=== PATIENT | female | born 1985 | race African-American/Black ===

== ENCOUNTER 2018-07-18 10:09 | Emergency (ER) | payer SELFPAY ==
[2018-07-18 11:19] LABS: Urine Blood NEGATIVE (NEG); Urine Glucose NEGATIVE (NEG); Urine Protein 1+ (NEG); Urine pH 7.5 (5.0-7.0)
[2018-07-18] MEDS ORDERED: IBUPROFEN 400 MG TAB ONE (11:28)
[2018-07-18] MEDS ORDERED: IBUPROFEN 200 MG TAB PO ONE (11:28)
[2018-07-18 11:32] LABS: Urine Amorphous Sediment 2+ /HPF (NONE SEEN); Urine Bacteria <20 /HPF (<20); Urine Culture Reflex Order NOT NEEDED; Urine Mucus 2+ /HPF (NONE SEEN); Urine RBC <5 /HPF (NONE SEEN)
[2018-07-18 12:16] LABS: Absolute Lymphocytes (CBC) 0.7 K/uL (0.7-4.9); Absolute Monocytes 1.2 K/uL (0.1-1.3); Absolute Neutrophil 13.3 K/uL (1.8-8.0); Basophils % 0.4 % (0-1.3); Eosinophils % 0.1 % (0-4.4); Lymphocytes % 4.7 % (15.3-44.8); MPV 10.7 fL (7.6-11.3); Monocytes % 7.6 % (3.3-12.3); RBC Red Blood Cell Count 4.15 M/uL (3.86-4.86)
[2018-07-18 12:29] LABS: Potassium 3.5 mmol/L (3.5-5.1)
--- NOTE | 2018-07-18 13:11 | EDPHYS ---
Physician Documentation [facility] Name: Cristin Cadena Age: 33 yrs Sex: Female : 1985 Arrival Date: 07/18/2018 Time: 10:14 Bed 12 Private MD: None, None ED Physician Jayson Ortiz HPI: 07/18 11:06 This 33 yrs old Black Female presents to ER via Ambulatory with complaints of Flu kb Symptoms. 11:06 The patient reports fever, that was measured at 103 degrees Fahrenheit, with an kb emergency department temperature of 99.1 degrees Fahrenheit. Onset: The symptoms/episode began/occurred 3 day(s) ago. Modifying factors: there are no obvious modifying factors. Associated signs and symptoms: Pertinent positives: abdominal pain, backache, chills, sore throat. Severity of symptoms: At their worst the symptoms were moderate in the emergency department the symptoms are unchanged. The patient has not experienced similar symptoms in the past. The patient has not recently seen a physician. 11:07 Pt reports fever, chills, bilateral flank pain, suprapubic pain, sore throat for 3 kb days. . 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 - Social history:: Smoking status: Patient/guardian denies using tobacco. - Ebola Screening: : No symptoms or risks identified at this time. ROS: 11:03 Neck: Negative for injury, pain, and swelling, Cardiovascular: Negative for chest pain, kb palpitations, and edema, MS/Extremity: Negative for injury and deformity, Skin: Negative for injury, rash, and discoloration, Neuro: Negative for headache, weakness, numbness, tingling, and seizure. 11:03 Constitutional: Positive for body aches, chills, fatigue, fever, malaise, Negative for poor PO intake, weight loss. 11:03 ENT: Positive for sinus pain. 11:03 Abdomen/GI: Positive for abdominal pain, Negative for nausea, vomiting, and diarrhea, constipation, abdominal cramps, abdominal distension, anorexia. 11:03 : Positive for flank pain. Exam: 11:05 Constitutional: This is a well developed, well nourished patient who is awake, alert, kb and in no acute distress. Head/Face: Normocephalic, atraumatic. ENT: Nares patent. No nasal discharge, no septal abnormalities noted. Tympanic membranes are normal and external auditory canals are clear. Oropharynx with no redness, swelling, or masses, exudates, or evidence of obstruction, uvula midline. Mucous membranes moist. Neck: Trachea midline, no thyromegaly or masses palpated, and no cervical lymphadenopathy. Supple, full range of motion without nuchal rigidity, or vertebral point tenderness. No Meningismus. Chest/axilla: Normal chest wall appearance and motion. Nontender with no deformity. No lesions are appreciated. Cardiovascular: Regular rate and rhythm with a normal S1 and S2. No gallops, murmurs, or rubs. Normal PMI, no JVD. No pulse deficits. Respiratory: Lungs have equal breath sounds bilaterally, clear to auscultation and percussion. No rales, rhonchi or wheezes noted. No increased work of breathing, no retractions or nasal flaring. Abdomen/GI: Soft, non-tender, with normal bowel sounds. No distension or tympany. No guarding or rebound. No evidence of tenderness throughout. Skin: Warm, dry with normal turgor. Normal color with no rashes, no lesions, and no evidence of cellulitis. MS/ Extremity: Pulses equal, no cyanosis. Neurovascular intact. Full, normal range of motion. Neuro: Awake and alert, GCS 15, oriented to person, place, time, and situation. Cranial nerves II-XII grossly intact. Motor strength 5/5 in all extremities. Sensory grossly intact. Cerebellar exam normal. Normal gait. 11:05 Back: CVA tenderness, that is mild, is noted bilaterally. Vital Signs: 10:26 BP 140 / 80; Pulse 94; Resp 18; Temp 99.1(O); Pulse Ox 100% on R/A; Weight 65.77 kg; ph Height 5 ft. 9 in. (175.26 cm); Pain 8/10; 11:21 Pulse 112; Resp 20; Temp 101.8(O); Pulse Ox 100% on R/A; ph 13:26 BP 127 / 72; Pulse 92; Resp 18; Temp 98.6; Pulse Ox 99% on R/A; ph 10:26 Body Mass Index 21.41 (65.77 kg, 175.26 cm) ph MDM: 10:27 Patient medically screened. kb 11:05 Data reviewed: vital signs, nurses notes. Data interpreted: Pulse oximetry: on room air kb is 100 %. Interpretation: normal. Counseling: I had a detailed discussion with the patient and/or guardian regarding: the historical points, exam findings, and any diagnostic results supporting the discharge/admit diagnosis, lab results, the need for outpatient follow up, a family practitioner, to return to the emergency department if symptoms worsen or persist or if there are any questions or concerns that arise at home. 13:09 ED course: Pt does not want CT at this time. Would like to go home now. kb 07/18 10:19 Order name: Flu; Complete Time: 10:56 ph 07/18 10:19 Order name: Strep; Complete Time: 10:49 ph 07/18 10:50 Order name: Throat Culture EDHI 07/18 11:10 Order name: Urine Microscopic Only ph 07/18 11:12 Order name: Urine Dipstick--Ancillary (enter results) eb 07/18 11:12 Order name: Urine --Ancillary (enter results) eb 07/18 11:22 Order name: Urine --Ancillary; Complete Time: 11:27 EDHI 07/18 11:22 Order name: Urine Dipstick-Ancillary; Complete Time: 11:27 EDHI 07/18 11:32 Order name: Urine Microscopic Only; Complete Time: 11:34 EDHI 07/18 11:34 Order name: CBC with Diff; Complete Time: 13:07 kb 07/18 11:34 Order name: Basic Metabolic Panel; Complete Time: 12:30 kb 07/18 11:34 Order name: [place] Screen Profile; Complete Time: 12:49 kb 07/18 10:20 Order name: Urine Dipstick-Ancillary (obtain specimen); Complete Time: 11:11 ph Administered Medications: 11:19 Drug: Ibuprofen 600 mg Route: PO; ss 12:30 Follow up: Response: No adverse reaction; Temperature is decreased ph Disposition: 16:11 Co-signature as Attending Physician, Jayson Ortiz MD I agree with the assessment and kdr plan of care. Disposition: 07/18/18 13:10 Discharged to Home. Impression: Fever, unspecified. - Condition is Stable. - Discharge Instructions: Viral Respiratory Infection, [id number], Fever, Adult, [id number]. - Medication Reconciliation Form, Thank You Letter, Antibiotic Education, Prescription Opioid Use form. - Follow up: Emergency Department; When: As needed; Reason: Worsening of condition. Follow up: Private Physician; When: 2 - 3 days; Reason: Recheck today's complaints, Continuance of care, Re-evaluation by your physician. Signatures: Dispatcher [employer] [facility] Macrina Diaz, ELECTRIC LINEMAN-C ELECTRIC LINEMAN-Ckb Jayson Ortiz MD MD [facility] Graciela Flores, NICOLE RN ss Dai Gutierrez RN RN ph Corrections: (The following items were deleted from the chart) 13:25 13:08 Abdomen Pelvis W Con+CT.RAD.BRZ ordered. [facility] 13:27 13:10 07/18/2018 13:10 Discharged to Home. Impression: Fever, unspecified. Condition is ph Stable. Forms are Medication Reconciliation Form, Thank You Letter, Antibiotic Education, Prescription Opioid Use. Follow up: Emergency Department; When: As needed; Reason: Worsening of condition. Follow up: Private Physician; When: 2 - 3 days; Reason: Recheck today's complaints, Continuance of care, Re-evaluation by your physician. kb
--- NOTE | 2018-07-18 13:11 | ER ---
Nurse's Notes [facility] Name: Cristin Cadena Age: 33 yrs Sex: Female : 1985 Arrival Date: 07/18/2018 Time: 10:14 Bed 12 Private MD: None, None Diagnosis: Fever, unspecified Presentation: 07/18 10:23 Presenting complaint: Patient states: Sore/swollen throat, fever, chills, nausea, low ph back pain and suprapubic pain, also reports urinary frequency but denies burning, took 1000 mg Tylenol at 0500, TMAX 103. Transition of care: patient was not received from another setting of care. Onset of symptoms was July 18, 2018. Risk Assessment: Do you want to hurt yourself or someone else? Patient reports no desire to harm self or others. Initial Sepsis Screen: Does the patient meet any 2 criteria? No. Patient's initial sepsis screen is negative. Does the patient have a suspected source of infection? Yes: Dysuria/Frequency/Urgency/UTI. Care prior to arrival: Medication(s) given: Tylenol, 1000 mg. 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 - Social history:: Smoking status: Patient/guardian denies using tobacco. - Ebola Screening: : No symptoms or risks identified at this time. Screenin:11 Abuse screen: Denies threats or abuse. Denies injuries from another. Nutritional ph screening: No deficits noted. Tuberculosis screening: No symptoms or risk factors identified. Fall Risk None identified. Assessment: 10:32 General: Appears in no apparent distress. uncomfortable, slender, well groomed, ph Behavior is calm, cooperative, appropriate for age, Reports chills for fever for 1-2 days. Pain: Complains of pain in suprapubic area, low back, and throat. 10:33 Neuro: Level of Consciousness is awake, alert, obeys commands, Oriented to person, ph place, time, situation. Cardiovascular: Capillary refill < 3 seconds in bilateral fingers Patient's skin is warm and dry. Respiratory: Airway is patent Respiratory effort is even, unlabored, Respiratory pattern is regular, symmetrical, Denies cough, shortness of breath. GI: Abdomen is flat, non-distended, Reports lower abdominal pain, nausea. : Reports pain in suprapubic area in lower back urinary frequency. EENT: Throat is reddened has enlarged tonsils bilaterally Reports nasal congestion pain when swallowing. Derm: Skin is intact, is healthy with good turgor, Skin is pink, warm \T\ dry. 11:20 Reassessment: Patient appears in no apparent distress at this time. Patient and/or ph family updated on plan of care and expected duration. Pain level reassessed. Patient is alert, oriented x 3, equal unlabored respirations, skin warm/dry/pink. Pt resting quietly, fever up to 101.8, ERP notified, see MAR, awaiting lab results. 12:30 Reassessment: Patient appears in no apparent distress at this time. Patient and/or ph family updated on plan of care and expected duration. Pain level reassessed. Patient is alert, oriented x 3, equal unlabored respirations, skin warm/dry/pink. Pt resting quietly, awaiting lab results. 13:17 Reassessment: Patient appears in no apparent distress at this time. Patient and/or ph family updated on plan of care and expected duration. Pain level reassessed. Patient is alert, oriented x 3, equal unlabored respirations, skin warm/dry/pink. Pt d/c home w/ SO. General:. Vital Signs: 10:26 BP 140 / 80; Pulse 94; Resp 18; Temp 99.1(O); Pulse Ox 100% on R/A; Weight 65.77 kg; ph Height 5 ft. 9 in. (175.26 cm); Pain 8/10; 11:21 Pulse 112; Resp 20; Temp 101.8(O); Pulse Ox 100% on R/A; ph 13:26 BP 127 / 72; Pulse 92; Resp 18; Temp 98.6; Pulse Ox 99% on R/A; ph 10:26 Body Mass Index 21.41 (65.77 kg, 175.26 cm) ph ED Course: 10:14 Patient arrived in ED. sb2 10:14 None, None is Private Physician. sb2 10:20 Macrina Diaz [facility]C [facility]. kb 10:20 Jayson Ortiz MD is Attending Physician. kb 10:23 Dai Gutierrez, RN is Primary Nurse. ph 10:26 Triage completed. ph 10:28 Arm band placed on Patient placed in an exam room. ph 11:11 Patient has correct armband on for positive identification. Call light in reach. Door ph closed. Noise minimized. Warm blanket given. 12:15 Inserted saline lock: 22 gauge in right forearm, using aseptic technique. ph 13:26 No provider procedures requiring assistance completed. IV discontinued, intact, ph bleeding controlled, No redness/swelling at site. Pressure dressing applied. Administered Medications: 11:19 Drug: Ibuprofen 600 mg Route: PO; 12:30 Follow up: Response: No adverse reaction; Temperature is decreased ph Outcome: 13:10 Discharge ordered by MD. kb 13:27 Discharged to home ambulatory, with significant other. ph 13:27 Condition: good 13:27 Discharge instructions given to patient, Instructed on discharge instructions, follow up and referral plans. Demonstrated understanding of instructions, follow-up care. 13:27 Patient left the ED. ph Signatures: Macrina Diaz FNP-C FNP-Ckb Smirch, Shelby, NICOLE RN Dai Gutierrez, RN RN Vianca Alfred sb2
[2018-07-18 14:21] VITALS: BP 127/72; TEMP 98.6; O2SAT 99
== END 2018-07-18 13:27 | disposition home or self-care (01) ==
LOC: ER 10:09
DX: R50.9 Fever, unspecified (principal); Z88.5 Allergy status to narcotic agent
CPT/HCPCS: 36415; 80048; 81003; 81015; 81025; 85025; 86308; 87070; 87081; 87804; 99283

== ENCOUNTER 2018-12-19 14:17 | Emergency (ER) | payer SELFPAY ==
--- NOTE | 2018-12-19 14:42 | ER ---
Nurse's Notes [facility] Name: Cristin Cadena Age: 33 yrs Sex: Female : 1985 Arrival Date: 12/19/2018 Time: 14:19 Bed Waiting Private MD: Diagnosis: ED Course: 12/19 14:19 Patient arrived in ED. as 14:39 Zen Bush PA is PHCP. tran 14:39 Enrico Rothman MD is Attending Physician. tran Administered Medications: No medications were administered Outcome: 14:35 Patient left the ED. aa5 14:35 Eloped from waiting room, Melinda (from patient access) states that patient stated "I aa5 am leaving because y'all are taking too long" as she walked out of the ER lobby. Signatures: Zen Bush PA PA jmm Martinez, Amelia as Orquidea Fulton RN RN aa5 Corrections: (The following items were deleted from the chart) 14:53 14:41 Patient left the ED. aa5 aa5
== END 2018-12-19 14:41 | disposition left against medical advice (07) ==
LOC: ER 14:17
DX: Z53.21 Procedure and treatment not carried out due to patient leaving prior to being seen by health care provider (principal)

== ENCOUNTER 2018-12-24 05:17 | Emergency (ER) | payer SELFPAY ==
--- OUTSIDE RECORDS SUMMARY | 2018-12-24 05:19 | XMS REPORT ---
:1985 [facility] [address] Shah [address] [place] [id number] Care Team Providers Name Role Phone Unavailable Unavailable Unavailable Problems This patient has no known problems. Allergies, Adverse Reactions, Alerts This patient has no known allergies or adverse reactions. Medications This patient has no known medications.
[2018-12-24] MEDS ORDERED: ONDANSETRON 4 MG/2 ML VIAL ONE (05:44)
[2018-12-24] MEDS ORDERED: NA CHLORIDE 0.9% 1,000 ML ONE (05:44)
[2018-12-24 06:00] LABS: Basophils % 0.8 % (0-1.3); Eosinophils % 0.5 % (0-4.4); Hematocrit 42.7 % (36.0-45.0); MPV 10.6 fL (7.6-11.3); Monocytes % 7.8 % (3.3-12.3); RBC Red Blood Cell Count 4.66 M/uL (3.86-4.86)
[2018-12-24 06:25] LABS: BUN Blood Urea Nitrogen 4 mg/dL (7-18); Bicarbonate 26 mmol/L (21-32); Glucose Level 94 mg/dL (74-106); HCG, Quantitative 81978 mIU/mL (1-3); Potassium 3.6 mmol/L (3.5-5.1); Sodium Level 136 mmol/L (136-145)
[2018-12-24 06:39] LABS: Urine Blood NEGATIVE (NEG); Urine Glucose NEGATIVE (NEG); Urine Protein 1+ (NEG); Urine Specific Gravity 1.015 (1.005-1.030); Urine pH 8.5 (5.0-7.0)
[2018-12-24 06:39] LABS: Urine Amorphous Sediment 2+ /HPF (NONE SEEN); Urine Bacteria <20 /HPF (<20); Urine Culture Reflex Order NOT NEEDED; Urine RBC <5 /HPF (NONE SEEN)
--- NOTE | 2018-12-24 06:58 | ER ---
Nurse's Notes [facility] Name: Cristin Cadena Age: 33 yrs Sex: Female : 1985 Arrival Date: 12/24/2018 Time: 05:18 Bed 6 Private MD: Diagnosis: Vomiting of , unspecified Presentation: 12/24 05:29 Presenting complaint: Patient states: "On December 19, I went to [place] [facility] and found out lp1 I was and ever since I have been vomiting and can't hold anything down"; Patient states pain to abdomen that began last night, worsening this morning. Transition of care: patient was not received from another setting of care. Onset of symptoms was December 23, 2018. Risk Assessment: Do you want to hurt yourself or someone else? Patient reports no desire to harm self or others. Initial Sepsis Screen: Does the patient meet any 2 criteria? No. Patient's initial sepsis screen is negative. Does the patient have a suspected source of infection? No. Patient's initial sepsis screen is negative. Care prior to arrival: None. 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 - Family history:: not pertinent. - Social history:: Smoking status: Patient uses tobacco products, smokes one-half pack cigarettes per day. - Ebola Screening: : No symptoms or risks identified at this time. - Hospitalizations: : No recent hospitalization is reported. Screenin:36 Abuse screen: Denies threats or abuse. Denies injuries from another. Nutritional lp1 screening: No deficits noted. Tuberculosis screening: No symptoms or risk factors identified. Fall Risk None identified. Assessment: 05:35 General: Appears in no apparent distress. Behavior is appropriate for age. Pain: lp1 Complains of pain in umbilical area and suprapubic area Pain currently is 8 out of 10 on a pain scale. Quality of pain is described as sharp. Neuro: Level of Consciousness is awake, alert, obeys commands, Oriented to person, place, time, situation, Gait is steady. Cardiovascular: Patient's skin is warm and dry. Respiratory: Respiratory effort is even, unlabored. GI: Abdomen is flat, Abdomen is tender to palpation in umbilical area and suprapubic area Reports intolerance of fluids, intolerance of food, nausea, vomiting. : Denies burning with urination, vaginal bleeding. EENT: No signs and/or symptoms were reported regarding the EENT system. Derm: Skin is pink, warm \\T\\ dry. Musculoskeletal: No deficits noted. 06:35 Reassessment: Ultrasound at bedside. lp1 07:15 Reassessment: Patient and/or family updated on plan of care and expected duration. Pain ea level reassessed. Patient is alert, oriented x 3, equal unlabored respirations, skin warm/dry/pink. Discharge instruction given to patient, verbalized the understanding of instruction. Pt left ambulatory with significant, tolerating well Patient states feeling better. Patient states symptoms have improved. Vital Signs: 05:33 BP 130 / 83; Pulse 68; Resp 16; Temp 98.4(O); Pulse Ox 100% on R/A; Weight 68.04 kg; lp1 Height 5 ft. 9 in. (175.26 cm); Pain 8/10; 06:45 BP 118 / 60; Pulse 60; Resp 18; Pulse Ox 99% ; ea 05:33 Body Mass Index 22.15 (68.04 kg, 175.26 cm) lp1 ED Course: 05:18 Patient arrived in ED. ds1 05:22 Oleg Dillon MD is Attending Physician. rn 05:29 Amrita Reddy, RN is Primary Nurse. lp1 05:32 Triage completed. lp1 05:32 Arm band placed on left wrist. lp1 05:37 Patient has correct armband on for positive identification. lp1 05:40 Inserted saline lock: 20 gauge in right antecubital area, using aseptic technique. ea Blood collected. 06:49 No provider procedures requiring assistance completed. lp1 06:50 US Transvaginal Ob In Process Unspecified. EDMS 07:07 Primary Nurse role handed off by Amrita Reddy, NICOLE 07:07 Fabian Newton, RN is Primary Nurse. sg 07:14 IV discontinued, intact, bleeding controlled, No redness/swelling at site. Pressure ea dressing applied. Administered Medications: 05:42 Drug: Zofran 4 mg Route: IVP; Site: right antecubital; ea 06:50 Follow up: Response: No adverse reaction; Nausea is decreased ea 05:45 Drug: NS 0.9% 1000 ml Route: IV; Rate: 1000 ml; Site: right antecubital; ea 07:00 Follow up: Response: No adverse reaction; IV Status: Completed infusion; IV Intake: ea 500ml Intake: 07:00 IV: 500ml; Total: 500ml. ea Outcome: 06:57 Discharge ordered by . rn 07:14 Discharged to home ambulatory, with significant other. ea 07:14 Condition: stable 07:14 Discharge instructions given to patient, Instructed on discharge instructions, follow up and referral plans. medication usage, Demonstrated understanding of instructions, follow-up care, medications. 07:17 Patient left the ED. ea Signatures: Dispatcher [employer] EDMS Fabian Newton, RN RN Perla Asya ds1 Oleg Dillon MD MD rn Pena, Laura, RN RN lp1 Chary Wiggins RN RN ea Corrections: (The following items were deleted from the chart) 05:37 05:35 GI: Abdomen is flat, Abdomen is tender to palpation in umbilical area and lp1 suprapubic area lp1
--- NOTE | 2018-12-24 06:58 | EDPHYS ---
Physician Documentation [facility] Name: Cristin Cadena Age: 33 yrs Sex: Female : 1985 Arrival Date: 12/24/2018 Time: 05:18 Bed 6 Private MD: ED Physician Oleg Dillon HPI: 12/24 05:28 This 33 yrs old Black Female presents to ER via Unassigned with complaints of Vomiting rn - PREG. 05:28 The patient presents to the emergency department with nausea, vomiting, abdominal pain. rn Onset: The symptoms/episode began/occurred today. Possible causes: . The symptoms are aggravated by nothing. The symptoms are alleviated by nothing. Severity of symptoms: At their worst the symptoms were moderate in the emergency department the symptoms are unchanged. The patient has experienced a previous episode. The patient has been recently seen by a physician:. \T\ unknown weeks gestation reports lower abd pain assoc with nausea/vomiting, no diarrhea, no fever. Similar symptoms on 12/19/2018, went to [facility], told was and dehdyrated, given fluids and nausea medication. Here today because now having lower abd pain and no u/s this . No vaginal bleeding.. 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 - Family history:: not pertinent. - Social history:: Smoking status: Patient uses tobacco products, smokes one-half pack cigarettes per day. - Ebola Screening: : No symptoms or risks identified at this time. - Hospitalizations: : No recent hospitalization is reported. ROS: 05:28 Constitutional: Negative for fever, chills, and weight loss, Eyes: Negative for injury, rn pain, redness, and discharge, Cardiovascular: Negative for chest pain, palpitations, and edema, Respiratory: Negative for shortness of breath, cough, wheezing, and pleuritic chest pain, Abdomen/GI: + lower abd pain Back: Negative for injury and pain, : Negative for injury, bleeding, discharge, and swelling, MS/Extremity: Negative for injury and deformity, Skin: Negative for injury, rash, and discoloration, Neuro: Negative for headache, weakness, numbness, tingling, and seizure. Exam: 05:28 Constitutional: This is a well developed, well nourished patient who is awake, alert, rn and in no acute distress. Head/Face: Normocephalic, atraumatic. Eyes: Pupils equal round and reactive to light, extra-ocular motions intact. Lids and lashes normal. Conjunctiva and sclera are non-icteric and not injected. Cornea within normal limits. Periorbital areas with no swelling, redness, or edema. ENT: MMM Abdomen/GI: soft, + suprapubic tenderness, no rebound Skin: Warm, dry MS/ Extremity: Pulses equal, no cyanosis. Neurovascular intact. Full, normal range of motion. Equal circumference. Neuro: Awake and alert, GCS 15, oriented to person, place, time, and situation. Cranial nerves II-XII grossly intact. Motor strength 5/5 in all extremities. Sensory grossly intact. Cerebellar exam normal. Normal gait. Vital Signs: 05:33 BP 130 / 83; Pulse 68; Resp 16; Temp 98.4(O); Pulse Ox 100% on R/A; Weight 68.04 kg; lp1 Height 5 ft. 9 in. (175.26 cm); Pain 8/10; 06:45 BP 118 / 60; Pulse 60; Resp 18; Pulse Ox 99% ; ea 05:33 Body Mass Index 22.15 (68.04 kg, 175.26 cm) lp1 MDM: 05:22 Patient medically screened. rn 05:42 ED course: Paged ultrasound for emergent u/s, rule out ectopic, u/s tech reports will rn be here at 0630. . 06:56 Differential diagnosis: Nonspecific abd pain, ectopic, discomfort of . rn 06:56 Data reviewed: vital signs, nurses notes, lab test result(s), radiologic studies, rn ultrasound, and as a result, I will discharge patient. Counseling: I had a detailed discussion with the patient and/or guardian regarding: the historical points, exam findings, and any diagnostic results supporting the discharge/admit diagnosis, lab results, radiology results, the need for outpatient follow up, to return to the emergency department if symptoms worsen or persist or if there are any questions or concerns that arise at home. Response to treatment: the patient's symptoms have markedly improved after treatment, and as a result, I will discharge patient. ED course: U/S shows IUP approx 8w2d. No bleeding. NO longer vomiting. Will defer residential medication for nausea to OB. Has prn zofran at home from recent [facility] visit.. 12/24 05:27 Order name: Quantitative Hcg; Complete Time: 06:30 rn 12/24 05:27 Order name: Abo/rh Typing; Complete Time: 06:30 rn 12/24 05:27 Order name: Basic Metabolic Panel; Complete Time: 06:30 rn 12/24 05:27 Order name: CBC with Diff; Complete Time: 06:30 rn 12/24 05:40 Order name: Urine Microscopic Only; Complete Time: 06:40 rn 12/24 05:54 Order name: Urine Dipstick--Ancillary (enter results); Complete Time: 06:40 cm6 12/24 05:27 Order name: Urine Test (obtain specimen); Complete Time: 05:52 rn 12/24 05:27 Order name: IV Saline Lock; Complete Time: 05:52 rn 12/24 05:27 Order name: Labs collected and sent; Complete Time: 05:52 rn 12/24 05:27 Order name: NPO; Complete Time: 06:11 rn 12/24 05:27 Order name: US Transvaginal Ob rn 12/24 05:54 Order name: Urine --Ancillary (enter results); Complete Time: 06:40 cm6 12/24 05:27 Order name: Urine Dipstick-Ancillary (obtain specimen); Complete Time: 06:11 rn Administered Medications: 05:42 Drug: Zofran 4 mg Route: IVP; Site: right antecubital; ea 06:50 Follow up: Response: No adverse reaction; Nausea is decreased ea 05:45 Drug: NS 0.9% 1000 ml Route: IV; Rate: 1000 ml; Site: right antecubital; ea 07:00 Follow up: Response: No adverse reaction; IV Status: Completed infusion; IV Intake: ea 500ml Disposition: 12/24/18 06:57 Discharged to Home. Impression: Vomiting of , unspecified. - Condition is Stable. - Discharge Instructions: Hyperemesis Gravidarum, Morning Sickness, [id number]. - Work release form, Medication Reconciliation Form, Thank You Letter, Antibiotic Education, Prescription Opioid Use form. - Follow up: Private Physician; When: As needed; Reason: Recheck today's complaints, Re-evaluation by your physician. - Problem is new. - Symptoms have improved. Signatures: Dispatcher [employer] EDMS Oleg Dillon MD MD rn Amrita Reddy RN RN lp1 Chary Wiggins RN RN ea Corrections: (The following items were deleted from the chart) 07:17 06:57 12/24/2018 06:57 Discharged to Home. Impression: Vomiting of , ea unspecified. Condition is Stable. Discharge Instructions: Hyperemesis Gravidarum, Morning Sickness, [id number]. Forms are Medication Reconciliation Form, Thank You Letter, Antibiotic Education, Prescription Opioid Use. Follow up: Private Physician; When: As needed; Reason: Recheck today's complaints, Re-evaluation by your physician. Problem is new. Symptoms have improved. rn
--- NOTE | 2018-12-24 08:01 | RAD REPORT ---
EXAM DESCRIPTION: US - Transvaginal OB - 12/24/2018 6:52 am CLINICAL HISTORY: with pelvic pain COMPARISON: None. FINDINGS: The uterus is retroverted measuring 9 x 7 x 9 centimeters. . A normal appearing gestation al sac is present within the endometrium. Within this is a yolk sac and pole with a crown-rump length 1.8 centimeters. Cardiac activity 160 beats per minute. Placenta is not well-formed but probab ly is posterior. Right and left ovary appear normal. . An adnexal mass is not noted. No significant free fluid is seen. IMPRESSION: Single live intrauterine with an estimated gestational age 8 weeks 2 days MARIA FERNANDA August 03, 2019
[2018-12-24 12:29] VITALS: BP 130/83; TEMP 98.4; O2SAT 100
== END 2018-12-24 07:17 | disposition home or self-care (01) ==
LOC: ER 05:17
DX: O21.9 Vomiting of pregnancy, unspecified (principal); O99.331 Smoking (tobacco) complicating pregnancy, first trimester; Z3A.08 8 weeks gestation of pregnancy; Z88.5 Allergy status to narcotic agent
CPT/HCPCS: 36415; 76817; 80048; 81003; 81015; 81025; 84702; 85025; 86900; 86901; 96361; 96374; 99284; J2405; J7030

== ENCOUNTER 2019-04-15 09:36 | Emergency (ER) | payer OTHER ==
--- NOTE | 2019-04-15 10:38 | EDPHYS ---
Physician Documentation [facility] Name: Cristin Cadena Age: 34 yrs Sex: Female : 1985 Arrival Date: 04/15/2019 Time: 09:38 Bed 19 Private MD: ED Physician Enrico Rothman HPI: 04/15 10:26 This 34 yrs old Black Female presents to ER via Ambulatory with complaints of Eye evangelista Problem. 10:26 caused by an unknown mechanism. Onset: The symptoms/episode began/occurred 2 day(s) evangelista ago. Duration: the symptoms are continuous. Aggravated by blinking, opening eye, Alleviated by nothing. Associated signs and symptoms: Pertinent positives: runny nose. Severity of symptoms: At their worst the symptoms were mild in the emergency department the symptoms are unchanged. 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 - Social history:: Smoking status: Patient/guardian denies using tobacco, but has a distant history of tobacco abuse. - Ebola Screening: : Patient denies exposure to infectious person Patient denies travel to an Ebola-affected area in the 21 days before illness onset. - Family history:: not pertinent. ROS: 10:26 Constitutional: Negative for fever, chills, and weight loss, Neck: Negative for injury, evangelista pain, and swelling, Cardiovascular: Negative for chest pain, palpitations, and edema, Abdomen/GI: Negative for abdominal pain, nausea, vomiting, diarrhea, and constipation, Back: Negative for injury and pain, : Negative for injury, bleeding, discharge, and swelling, MS/Extremity: Negative for injury and deformity, Skin: Negative for injury, rash, and discoloration, Neuro: Negative for headache, weakness, numbness, tingling, and seizure, Psych: Negative for depression, anxiety, suicide ideation, homicidal ideation, and hallucinations, Allergy/Immunology: Negative for hives, rash, and allergies, Endocrine: Negative for neck swelling, polydipsia, polyuria, polyphagia, and marked weight changes, Hematologic/Lymphatic: Negative for swollen nodes, abnormal bleeding, and unusual bruising. 10:26 Eyes: Positive for discharge, pain, redness. 10:26 Respiratory: Positive for cough. Exam: 10:26 Constitutional: This is a well developed, well nourished patient who is awake, alert, evangelista and in no acute distress. Head/Face: Normocephalic, atraumatic. Neck: Trachea midline, no thyromegaly or masses palpated, and no cervical lymphadenopathy. Supple, full range of motion without nuchal rigidity, or vertebral point tenderness. No Meningismus. Chest/axilla: Normal chest wall appearance and motion. Nontender with no deformity. No lesions are appreciated. Cardiovascular: Regular rate and rhythm with a normal S1 and S2. No gallops, murmurs, or rubs. Normal PMI, no JVD. No pulse deficits. Respiratory: Lungs have equal breath sounds bilaterally, clear to auscultation and percussion. No rales, rhonchi or wheezes noted. No increased work of breathing, no retractions or nasal flaring. Abdomen/GI: Soft, non-tender, with normal bowel sounds. No distension or tympany. No guarding or rebound. No evidence of tenderness throughout. Back: No spinal tenderness. No costovertebral tenderness. Full range of motion. Skin: Warm, dry with normal turgor. Normal color with no rashes, no lesions, and no evidence of cellulitis. MS/ Extremity: Pulses equal, no cyanosis. Neurovascular intact. Full, normal range of motion. Neuro: Awake and alert, GCS 15, oriented to person, place, time, and situation. Cranial nerves II-XII grossly intact. Motor strength 5/5 in all extremities. Sensory grossly intact. Cerebellar exam normal. Normal gait. Psych: Awake, alert, with orientation to person, place and time. Behavior, mood, and affect are within normal limits. 10:26 Eyes: Periorbital structures: appear normal, Pupils: no acute changes, Extraocular movements: no acute changes, Conjunctiva: injected, bilaterally. Vital Signs: 09:54 BP 117 / 76; Pulse 105; Resp 15; Temp 98.7(TE); Pulse Ox 99% on R/A; Weight 61.23 kg; ss Height 5 ft. 9 in. (175.26 cm); Pain 9/10; 09:54 Body Mass Index 19.94 (61.23 kg, 175.26 cm) MDM: 09:56 Patient medically screened. [facility] 10:36 Data reviewed: vital signs, nurses notes. [facility] 04/15 10:26 Order name: FHT's; Complete Time: 10:28 [facility] Administered Medications: No medications were administered Disposition: 04/15/19 10:37 Discharged to Home. Impression: Conjunctivitis, related conditions, unspecified, second trimester, Acute upper respiratory infection, unspecified. - Condition is Stable. - Discharge Instructions: Bacterial Conjunctivitis, Upper Respiratory Infection, Adult, Cool Mist Vaporizer, Cough, Adult, [id number], Cough, Adult, Second Trimester of , [id number]. - Prescriptions for Polytrim 10,000 unit- 1 mg/mL Ophthalmic drops - instill 1 drop by OPHTHALMIC route every 6 hours; 10 milliliter. Amoxicillin 500 mg Oral Capsule - take 1 capsule by ORAL route every 8 hours for 10 days; 21 tablet. Claritin 10 mg Oral Tablet - take 1 tablet by ORAL route once daily As needed; 20 tablet. - Medication Reconciliation Form, Thank You Letter, Antibiotic Education, Prescription Opioid Use, Work release form form. - Follow up: Private Physician; When: 2 - 3 days; Reason: Recheck today's complaints, Continuance of care, Re-evaluation by your physician. - Problem is new. - Symptoms have improved. Signatures: Dispatcher [employer] Connie Mariscal, RN RN Enrico Iglesias MD MD cha Smirch, Shelby, RN RN ss Corrections: (The following items were deleted from the chart) 10:50 10:37 04/15/2019 10:37 Discharged to Home. Impression: Conjunctivitis; sv related conditions, unspecified, second trimester; Acute upper respiratory infection, unspecified. Condition is Stable. Forms are Medication Reconciliation Form, Thank You Letter, Antibiotic Education, Prescription Opioid Use. Follow up: Private Physician; When: 2 - 3 days; Reason: Recheck today's complaints, Continuance of care, Re-evaluation by your physician. Problem is new. Symptoms have improved. [facility]
--- NOTE | 2019-04-15 10:38 | ER ---
Nurse's Notes [facility] Name: Cristin Cadena Age: 34 yrs Sex: Female : 1985 Arrival Date: 04/15/2019 Time: 09:38 Bed 19 Private MD: Diagnosis: Conjunctivitis; related conditions, unspecified, second trimester;Acute upper respiratory infection, unspecified Presentation: 04/15 09:52 Presenting complaint: Patient states: bilateral eye redness and itching that began 2 ss days ago. Pt also c/o sore throat. Transition of care: patient was not received from another setting of care. Onset of symptoms was April 13, 2019. Risk Assessment: Do you want to hurt yourself or someone else? Patient reports no desire to harm self or others. Initial Sepsis Screen: Does the patient meet any 2 criteria? No. Patient's initial sepsis screen is negative. Does the patient have a suspected source of infection? No. Patient's initial sepsis screen is negative. Care prior to arrival: None. 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 - Social history:: Smoking status: Patient/guardian denies using tobacco, but has a distant history of tobacco abuse. - Ebola Screening: : Patient denies exposure to infectious person Patient denies travel to an Ebola-affected area in the 21 days before illness onset. - Family history:: not pertinent. Screenin:28 Abuse screen: Denies threats or abuse. Denies injuries from another. Nutritional aj1 screening: No deficits noted. Tuberculosis screening: No symptoms or risk factors identified. 10:49 Fall Risk None identified. sv Assessment: 10:28 General: Appears in no apparent distress. comfortable, Behavior is calm, cooperative, aj1 appropriate for age. Pain: Complains of pain in left aspect of posterior pharynx and right aspect of posterior pharynx. Neuro: Level of Consciousness is awake, alert, obeys commands, Oriented to person, place, time, situation. Cardiovascular: Patient's skin is warm and dry. Respiratory: Airway is patent Respiratory effort is even, unlabored, Respiratory pattern is regular, symmetrical. Respiratory: Reports cough that is. GI: No signs and/or symptoms were reported involving the gastrointestinal system. : No signs and/or symptoms were reported regarding the genitourinary system. Denies vaginal bleeding. EENT: Sclera/Cornea are reddened in outer aspect of conjuctiva of right eye, inner aspect of conjuctiva of right eye, outer aspect of conjuctiva of left eye and inner aspect of conjunctiva of left eye Reports nasal congestion nasal discharge sore throat, watery eyes. Derm: No signs and/or symptoms reported regarding the dermatologic system. Skin is pink, warm \T\ dry. normal. Musculoskeletal: No signs and/or symptoms reported regarding the musculoskeletal system. Circulation, motion, and sensation intact. 10:49 Reassessment: Patient appears in no apparent distress at this time. No changes from sv previously documented assessment. Patient and/or family updated on plan of care and expected duration. Pain level reassessed. Patient is alert, oriented x 3, equal unlabored respirations, skin warm/dry/pink. Vital Signs: 09:54 BP 117 / 76; Pulse 105; Resp 15; Temp 98.7(TE); Pulse Ox 99% on R/A; Weight 61.23 kg; ss Height 5 ft. 9 in. (175.26 cm); Pain 9/10; 09:54 Body Mass Index 19.94 (61.23 kg, 175.26 cm) Vitals: 10:28 Heart Tones 164. aj1 ED Course: 09:38 Patient arrived in ED. as 09:53 Triage completed. ss 09:54 Arm band placed on right wrist. ss 09:56 Enrico Rothman MD is Attending Physician. evangelista 10:15 Marcella Javier, RN is Primary Nurse. aj1 10:28 Patient has correct armband on for positive identification. Bed in low position. Call aj1 light in reach. Side rails up X 1. 10:28 No provider procedures requiring assistance completed. aj1 10:49 Patient did not have IV access during this emergency room visit. sv Administered Medications: No medications were administered Outcome: 10:37 Discharge ordered by . evangelista 10:49 Discharged to home ambulatory. sv 10:49 Condition: stable 10:49 Discharge instructions given to patient, Instructed on discharge instructions, follow up and referral plans. medication usage, Demonstrated understanding of instructions, follow-up care, medications, Prescriptions given X 3. 10:50 Patient left the ED. sv Signatures: Marcella Javier, RN RN aj1 Connie Agustin RN RN sv Enrico Rothman MD MD cha Martinez, Amelia as Smirch, Shelby, RN RN ss
[2019-04-15 11:02] VITALS: BP 117/76; TEMP 98.7; O2SAT 99
== END 2019-04-15 10:50 | disposition home or self-care (01) ==
LOC: ER 09:36
DX: O26.892 Other specified pregnancy related conditions, second trimester (principal); H10.9 Unspecified conjunctivitis; J06.9 Acute upper respiratory infection, unspecified; Z88.6 Allergy status to analgesic agent
CPT/HCPCS: 99283